=== PATIENT | female | born 1970 | race Asian ===

== ENCOUNTER → 2016-10-29 | Outpatient (CLI) | payer OTHER | LOC: CIMAGING 08:15 | DX: Z12.31 Encounter for screening mammogram for malignant neoplasm of breast (principal) | CPT/HCPCS: G0202 ==

== ENCOUNTER → 2016-11-09 | Outpatient (CLI) | payer OTHER | LOC: BMCIMAGING 10:17 | PROVIDERS: ATTEND Internal Medicine | DX: M47.892 Other spondylosis, cervical region (principal) ==

== ENCOUNTER → 2017-04-09 | Outpatient (CLI) | payer OTHER | LOC: BMCIMAGING 09:27 | PROVIDERS: ATTEND Nurse Practitioner Adult Health | DX: M25.532 Pain in left wrist (principal) ==

== ENCOUNTER → 2017-06-18 | Outpatient (CLI) | payer OTHER ==
[~2017-06-18] MED LIST: IOPAMIDOL (ISOVUE-300) 100 ML BTL ONE
== END ==
LOC: CIMAGING 08:25
PROVIDERS: ATTEND Internal Medicine
DX: R10.2 Pelvic and perineal pain (principal); M54.9 Dorsalgia, unspecified
CPT/HCPCS: 74177-PO; Q9967

== ENCOUNTER → 2017-08-07 | Outpatient (CLI) | payer OTHER | LOC: FIMAGING 12:25 | PROVIDERS: ATTEND Internal Medicine | DX: Z13.820 Encounter for screening for osteoporosis (principal); M81.0 Age-related osteoporosis without current pathological fracture; Z85.42 Personal history of malignant neoplasm of other parts of uterus ==

== ENCOUNTER → 2017-09-06 | Outpatient (CLI) | payer OTHER | LOC: FIMAGING 11:52 | PROVIDERS: ATTEND Internal Medicine Endocrinology, Diabetes & Metabolism | DX: E21.3 Hyperparathyroidism, unspecified (principal) | CPT/HCPCS: 78070; A9500 ==

== ENCOUNTER → 2017-10-07 | Outpatient (CLI) | payer OTHER | LOC: CIMAGING 10:45 | PROVIDERS: ATTEND Otolaryngology | DX: E21.3 Hyperparathyroidism, unspecified (principal); Z85.42 Personal history of malignant neoplasm of other parts of uterus | CPT/HCPCS: 70492-PO; Q9967 ==

== ENCOUNTER 2017-11-01 09:00 | Observation (INO) | payer OTHER ==
[2017-11-01] MEDS ORDERED: LR 1,000 ML IV ONE (09:19)
[2017-11-01] MEDS ORDERED: LIDOCAINE 1% 300 MG/30 ML SDV ONE (10:02)
[2017-11-01] MEDS ORDERED: ceFAZolin 2 GM/SWFI 2 GM/20 ML SYR IVP ONE (10:04)
--- NOTE | 2017-11-01 10:05 | PDHPUP ---
History & Physical Update H&P update statement: This history and physical update is based on an assessment of the patient which was completed after admission or registration (within 24 hours), but prior to the surgery/procedure. H&P update: H&P reviewed & patient examined (no change, plan for bilateral neck exploration, parathyroidectomy)
--- NOTE | 2017-11-01 10:09 | PDANEPAE ---
ANE History of Present Illness 47 year old with hyper parathyroid ANE Past Medical History - Cardiovascular History Hx Hypertension: No Hx Arrhythmias: No Hx Chest Pain: No Hx Coronary Artery / Peripheral Vascular Disease: No Hx CHF / Valvular Disease: No Hx Palpitations: Yes Cardiovascular History Comment: Holter monitor negative 2017 - Pulmonary History Hx COPD: No Hx Asthma/Reactive Airway Disease: No Hx Recent Upper Respiratory Infection: No Hx Oxygen in Use at Home: No Hx Sleep Apnea: No Sleep Apnea Screening Result - Last Documented: Negative - Neurologic History Hx Cerebrovascular Accident: No Hx Seizures: No Hx Dementia: No - Endocrine History Hx Diabetes: No Endocrine History Comment: hyper-parathyroidism - Renal History Hx Renal Disorders: No - Liver History Hx Hepatic Disorders: Yes Hepatic History Comment: fatty liver - Neurological & Psychiatric Hx Hx Neurological and Psychiatric Disorders: No - Cancer History Hx Cancer: Yes Cancer History Comment: uterine cancer 2011 - Congenital Disorder History Hx Congenital Disorders: No - GI History Hx Gastrointestinal Disorders: Yes Gastrointestinal History Comment: GERD - Other Health History Other Health History: osteo-porosis. TMJ - Surgical History Prior Surgeries: 2011 hysterectomy. 2011 oopherectomy. 2016 left knee reconstruction ANE Review of Systems Review of systems is: negative Review of Systems: - Exercise capacity METS (RN): 4 METS ANE Patient History - Allergies Allergies/Adverse Reactions: ibuprofen Allergy (Mild, Verified 11/01/17 09:26) Abdominal Cramping - Home Medications Home medications: home medication list seen and reviewed Home Medications: Cholecalciferol Vit D3 [Vitamin D3 2000 units tab (OTC)] 2,000 units PO DAILY [Last Taken 10/31/17] Herbals/Supplements -Info Only 1 ea PO DAILY 10/22/17 [Last Taken 1 Week Ago ~] Omeprazole 20 mg PO BID 10/22/17 [Last Taken 10/31/17] Triamcinolone Acetonide [Nasacort] 1 spray EACHNARE DAILY 10/22/17 [Last Taken 10/31/17] - NPO status NPO Since - Liquids (Date): 11/01/17 NPO Since - Liquids (Time): 06:15 NPO Since - Solids (Date): 10/31/17 NPO Since - Solids (Time): 22:30 - Anes Hx Anes Hx: no prior problems - Smoking Hx Smoking Status: Never smoked - Family Anes Hx Family Hx Anesthesia Complications: none ANE Labs/Vital Signs - Vital Signs Blood Pressure: 126/74 Heart Rate: 66 Respiratory Rate: 14 O2 Sat (%): 96 Height: 157.48 cm Weight: 61.235 kg ANE Physical Exam - Airway Neck exam: FROM Mallampati Score: Class 1 Mouth exam: normal dental/mouth exam - Pulmonary Pulmonary: no respiratory distress - Cardiovascular Cardiovascular: regular rate and rhythym ANE Anesthesia Plan Anesthesia Plan: general endotracheal anesthesia
[2017-11-01] MEDS ORDERED: MIDAZOLAM 2 MG/2 ML VIAL IVP ONE (10:15)
[2017-11-01] MEDS ORDERED: MIDAZOLAM 2 MG/2 ML VIAL ONE (10:20)
[2017-11-01] MEDS ORDERED: fentaNYL 100 MCG/2 ML INJ ONE ×4 (10:35→13:53)
[2017-11-01] MEDS ORDERED: PROPOFOL 200 MG/20 ML VIAL ONE (10:35)
[2017-11-01] MEDS ORDERED: PROMETHAZINE HCL 25 MG/ML INJ IVP PRN (12:50)
[2017-11-01] MEDS ORDERED: NALOXONE HCL 0.4 MG/ML INJ IVP PRN (12:50)
[2017-11-01] MEDS ORDERED: ONDANSETRON 4 MG/2 ML VIAL IVP PRN ×2 (12:50→13:54)
[2017-11-01] MEDS ORDERED: HYDROmorphONE/DILAUDID 1 MG/ML INJ IVP PRN (12:50)
[2017-11-01] MEDS ORDERED: HYDROmorphONE/DILAUDID 2 MG/ML INJ IVP PRN (12:58)
[2017-11-01] MEDS ORDERED: ONDANSETRON 4 MG/2 ML VIAL ONE (13:26)
--- NOTE | 2017-11-01 13:35 | POSTOPPROG ---
Post Op Note Date of Operation: 11/01/17 Surgeon: Crystal Tom Fruit Culler: Wilbert Cherry MD Anesthesiologist: Coy Bobo MD Anesthesia: Epidural, GET(General Endotracheal) Pre-op Diagnosis: hyperparathyroidism, osteoporosis Post-op Diagnosis: same Procedure: bilateral neck exploration, R superior parathyroidectomy, NIMS Findings: 105 mg RS parathyroid, all 4 found, PTH 70-->16 Inf/Abcess present in the surg proc area at time of surgery?: No Depth: Superfical (Skin SQ) EBL: Minimal Complications: none apparent
[2017-11-01] MEDS ORDERED: ACETAMINOPHEN 325 MG TAB PO PRN (13:54)
[2017-11-01] MEDS ORDERED: CALCIUM CARBONATE 500 MG CHEWABLE TAB PO PRN (13:56)
[2017-11-01] MEDS: fentaNYL 100 MCG/2 ML INJ IVP PRN ×2 (13:59→14:10)
[2017-11-01] MEDS ORDERED: D5W 1/2 NS W/ 20 KCl/L 1,000 ML IV SCH (14:00)
[2017-11-01] MEDS ORDERED: DIAZEPAM 5 MG/ML 1 ML SYR IVP PRN (14:15)
--- NOTE | 2017-11-01 14:16 | POSTANESTH ---
Post Anesthetic Evaluation Cardiovascular Status: Normal, Stable Respiratory Status: Normal, Stable Level of Consciousness/Mental Status: Can Participate in Eval, Mildly Sleepy, Arousable Pain Control: Adequate, Prn Tx Ordered Nausea/Vomiting Control: Adequate, Prn Tx Ordered Complications Possibly Related to Anesthesia: None Noted
[2017-11-01] MEDS ORDERED: DIAZEPAM 5 MG/ML 1 ML SYR ONE (14:17)
[2017-11-01] MEDS: OXYCODONE/APAP 5/325 TAB PO PRN (20:25)
[2017-11-01] MEDS: RANITIDINE HCL 150 MG/10 ML UDCUP PO SCH (20:28)
[2017-11-02 07:45] VITALS: BP 109/63; PULSE 74; RESP 16; TEMP 98.1; O2SAT 97
[2017-11-02] MEDS: OXYCODONE/APAP 5/325 TAB PO PRN (07:47)
--- NOTE | 2017-11-02 08:55 | SOAPPROG ---
SOAP Progress Note Assessment/Plan: Assessment: POD 1 R parathyroidectomy. Doing well, labs normal this am. Can d/ home this am. Continue Vit D she takes at home and fu with endocrine. Will have her f/ u with me in a week. D/c home with pain meds. Plan: 11/02/17 08:53 Subjective: DId well O/N. PTH this am is 33, Ca 8.7. No issues, mild soreness of neck and odynophagia Objective: AFVSS RA neck flat, no sig fullness, steris in place voice strong Vital Signs Temp Pulse Resp BP Pulse Ox 36.7 C 74 16 109/63 97 11/02/17 07:44 11/02/17 07:44 11/02/17 07:44 11/02/17 07:44 11/02/17 07:44 11/01/17 11/02/17 11/03/17 05:59 05:59 05:59 Intake Total 925 Output Total 410 Balance 515 ICD10 Worksheet Patient Problems: Problems Problem Status Onset Hyperparathyroidism Acute - ICD10 Problem Qualifiers (1) Hyperparathyroidism
[2017-11-02] MEDS: RANITIDINE HCL 150 MG/10 ML UDCUP PO SCH (09:46)
--- NOTE | 2017-11-04 20:01 | GOP ---
[f rep st] OPERATIVE REPORT DATE OF OPERATION: 11/01/2017 SURGEON: Crystal Tom MD SURGICAL INSTRUMENT TECHNICIAN: Javier Cherry MD ANESTHESIA: General. PREOPERATIVE DIAGNOSIS: 1. Hyperparathyroidism. 2. Osteoporosis. POSTOPERATIVE DIAGNOSIS: 1. Hyperparathyroidism. 2. Osteoporosis. PROCEDURE PERFORMED: 1. Bilateral neck exploration. 2. Right superior parathyroidectomy. 3. Bilateral recurrent laryngeal nerve monitoring utilizing the [employer] NIM system. COMPLICATIONS: None. FINDINGS: The patient was found to have a preoperative PTH of 70.2. Postoperatively, after removal of the right superior parathyroid, this dropped to 21.8. The parathyroid gland was noted to be hypercellular, but only 105 mg per Pathology. Recurrent laryngeal nerves were both noted to be intact and stimulated postoperatively. ESTIMATED BLOOD LOSS: Minimal. INDICATIONS: The patient is a very pleasant 47-year-old woman who has a history of high PTH, as well as high calcium. She had a workup for other causes of hypercalcemia and she was diagnosed with primary hyperparathyroidism. She did have a sestamibi scan which was negative for any obvious adenoma. She also had a 4D CT, as well as an ultrasound, that were both negative also. She does have fairly significant osteoporosis for her young age and it was felt after discussion with her as well as her outside salesman that a bilateral exploration would be reasonable. DESCRIPTION OF PROCEDURE: The patient was first seen in the preoperative area, where informed consent was obtained. She was then brought back to the operating room where Anesthesia sedated and intubated her using a NIM tube. The bed was turned 180 degrees. A shoulder roll was placed. The NIM tube probes were connected and confirmed to be registering appropriately, which they were. A universal time-out protocol was performed. Once this was done, a 3-cm incision was marked out in the midline portion of the neck, in between the sternal notch and the cricoid. 1% lidocaine with 1:200,000 epinephrine was injected into the area around this incision. Once this was done, the patient was prepped and draped in a sterile fashion. Then, a #15 blade was used to make an incision through skin and subcutaneous tissues. The platysma was divided and subplatysmal flaps were elevated superiorly and inferiorly. Gelpi clips were used to give exposure of the incision. The midline strap muscles were divided in the midline and then we first started on the right side. The strap musculature was elevated off the underlying thyroid gland and then the thyroid gland was gently retracted medially so that we could access the undersurface of this. We initially found the right inferior parathyroid in its normal location. This was fairly small without any significant abnormalities. We then started dissecting superiorly and found a superior parathyroid just on the undersurface of the right portion of the superior thyroid gland. This did look somewhat enlarged, but not overtly an adenoma. So, at this point, it was felt that looking on the left side was reasonable as well. So, at this point, the strap musculature was elevated off the underlying thyroid gland on the left. The thyroid was gently retracted again until we were able to find the left inferior as well as the left superior parathyroid in their normal locations. Both of these were small, about the size of the right inferior parathyroid. So, at this point, we had found 4 parathyroid glands. The right superior gland was the largest. We went back to this side and removed this parathyroid gland as a whole and sent this off for frozen pathology. We then also sent a rapid PTH at 10 and 20 minutes postremoval of the right superior parathyroid. The wound was irrigated copiously with normal saline and suctioned clear. There was no significant active bleeding. Both nerves were noted to be stimulating as well. We got a call back from the pathologist noting that this was hypercellular, but only 105 mg. We waited for the lab and when this dropped to a PTH of 21, it was felt that this represented the adenoma , and so the procedure was terminated at this point. So, at this point, 3-0 Vicryl was used to close the strap musculature in the midline, and then the platysma. As well, the subcutaneous tissue was closed using 3-0 Vicryl in interrupted fashion as well. I then placed 5-0 Monocryl in a running subcuticular fashion and then the skin was cleaned and then dried. Mastisol was placed over the skin edges and then Steri-Strips were placed over the incision. At this point, the patient was turned back over to Anesthesia, where she was awoken and extubated and taken to PACU in stable condition. There were no complications. She tolerated the procedure well and all instrument counts were correct. /[id number]/MODL MTDD
== END 2017-11-02 10:51 | disposition home or self-care (01) ==
LOC: F3N 09:00 → F3E 15:08
PROVIDERS: ADMIT Otolaryngology; ATTEND Otolaryngology
PROC: 0GTL0ZZ Resection of Right Superior Parathyroid Gland, Open Approach (ICD-10-PCS; principal; 2017-11-01 10:15)
DX: E21.0 Primary hyperparathyroidism (principal); D35.1 Benign neoplasm of parathyroid gland; M81.0 Age-related osteoporosis without current pathological fracture; Z85.42 Personal history of malignant neoplasm of other parts of uterus; Z90.710 Acquired absence of both cervix and uterus; Z90.722 Acquired absence of ovaries, bilateral
CPT/HCPCS: 60500; G0378; J0171; J0690; J2250; J2405; J2704; J3010; J3360

== ENCOUNTER → 2017-11-14 | Outpatient (CLI) | payer OTHER | LOC: CIMAGING 10:07 | DX: Z12.31 Encounter for screening mammogram for malignant neoplasm of breast (principal) ==

== ENCOUNTER → 2018-01-24 | Outpatient (CLI) | payer OTHER | LOC: CIMAGING 08:32 | PROVIDERS: ATTEND Otolaryngology | DX: J34.89 Other specified disorders of nose and nasal sinuses (principal) | CPT/HCPCS: 70486-PO ==

== ENCOUNTER → 2018-05-27 | Outpatient (CLI) | payer OTHER | LOC: CIMAGING 07:20 | PROVIDERS: ATTEND Internal Medicine | DX: R14.0 Abdominal distension (gaseous) (principal); K76.0 Fatty (change of) liver, not elsewhere classified | CPT/HCPCS: 76705-PO ==

== ENCOUNTER → 2018-06-04 | Outpatient (CLI) | payer OTHER | LOC: FIMAGING 13:00 | PROVIDERS: ATTEND Internal Medicine | DX: N64.4 Mastodynia (principal); R14.0 Abdominal distension (gaseous) ==